=== PATIENT | male | born 1930 | race Caucasian/White ===

== ENCOUNTER → 2017-01-18 | Outpatient (CLI) | payer MEDICARE | END | disposition home or self-care (01) | LOC: LAB.O 07:16 | PROVIDERS: ATTEND Nurse Practitioner Family | DX: I10 Essential (primary) hypertension (principal); C61 Malignant neoplasm of prostate; E53.8 Deficiency of other specified B group vitamins | CPT/HCPCS: 36415; 80053; 82607; 85025; G0103 ==